=== PATIENT | male | born 1965 | race Caucasian/White ===

== ENCOUNTER 2022-05-03 08:57 | Day surgery (SDC) | payer OTHER ==
--- OUTSIDE RECORDS SUMMARY | 2022-05-03 09:01 | XMS REPORT | Continuity of Care Document ---
:1965 Author Organization [facility] t Address [address] [place] [address] Care Team Providers Name Role Phone Rodrigo Pedraza MD Primary Care Physician David Gipson Attending Clinician Unavailable David Gipson Admitting Clinician Unavailable Rodrigo Pedraza Admitting Clinician Unavailable Payers Payer Name Policy Type Policy Number Effective Date Expiration Date S ource Problems Condition Condition Condition Status Onset Resolution Last Treating Co mments Source Name Details Category Date Date Treatment Clinician Date Colonic Colonic Disease Active Methodi mass mass 08-28 00:00: [facility]osp[facility] 00 l Allergies, Adverse Reactions, Alerts Allergy Allergy Status Severity Reaction(s) Onset Inactive Treating Comm ents Source Name Type Date Date Clinician No Known DA Active U [facility] 07-28 Clear Allergie 00:00: Raphael s 00 [facility] POLLEN DA Active IA SNEEZE, [facility] WATERY EYES, 07-28 Keiry r COUGH 00:00: Raphael 00 [facility] No Known DA Active U [facility] 07-28 Clear Allergie 00:00: Raphael s 00 [facility] Family History Family Member Diagnosis Comments Start Date Stop Date Source Natural father Diabetes [facility] Maternal uncle Cancer [facility] Maternal uncle Colon cancer [facility] Natural mother No Known Problems Met [facility] Social History Social Habit Start Date Stop Date Quantity Comments Source History of Chews Tobacco [facility] use [facility] Alcohol intake 2017-09-14 2017-09-14 1.29 /d [facility] 00:00:00 00:00:00 Hospital Tobacco Comment 2017-08-28 2017-08-28 dipped tobacco [facility] dist 00:00:00 00:00:00 this morning Hospital @0500am Tobacco use and 2017-08-28 2017-08-28 User of smokeless [facility] exposure 00:00:00 00:00:00 tobacco Hospital Alcohol Comment 2017-08-02 2017-08-02 week [facility] 00:00:00 00:00:00 Hospital Sex Assigned At [birth year] [facility] 00:00:00 00:00:00 Hospital Smoking Status Start Date Stop Date Source Never smoked tobacco [facility] Medications Ordered Filled Start Stop Current Ordering Indication Dosage Frequency Signature Comments Components Source Medication Medication Date Date Medication? Clinician (SIG) Name Name montelukast Yes 10mg QD Take 10 mg Methodi (SINGULAIR) 2-[address] 10 mg 19:21: nightly. Hospita tablet 15 l loratadine Yes 10mg Q24H Take 10 mg M ethodi (CLARITIN) 2-[address] 10 mg 19:21: daily as Hospita tablet 15 needed for l allergies. Procedures Procedure Date / Time Performed Performing Clinician [facility] hoda [id number] 2021-01-04 00:00:00 MATVA.01 [facility] [id number] 2021-01-04 00:00:00 MATVA.01 [facility] [id number] 2020-08-03 [facility] [place] [address] Plan of Care Planned Activity Planned Date Details Comments Source Future Scheduled 2022-03-10 HEPATITIS B VACCINES Met [facility] Test 01:17:58 (1 of 3 - 3-dose series) [code = HEPATITIS B VACCINES (1 of 3 - 3-dose series)] Future Scheduled 2022-03-10 COVID-19 VACCINE (#1) [facility] Test 01:17:58 [code = COVID-19 VACCINE (#1)] Future Scheduled 2022-03-10 SHINGLES VACCINES (1 Met [facility] Test 01:17:58 of 2) [code = SHINGLES VACCINES (1 of 2)] Future Scheduled 2022-03-10 COLONOSCOPY SCREENING [facility] Test 01:17:58 [code = COLONOSCOPY SCREENING] Future Scheduled 2022-03-10 INFLUENZA VACCINE [facility] Test 01:17:58 [code = INFLUENZA VACCINE] Encounters Start End Encounter Admission Attending Care Care Encounter Source Date/Time Date/Time Type Type Clinicians Facility Department ID 2020-08-03 Inpatient GEOVANNY Gates SURG [id number] [facility] 09:30:00 David [facility] 2021-01-04 2021-01-04 Inpatient GEOVANNY Gates ADMI [id number] [facility] 05:33:00 19:12:00 David 84 [facility] 2020-12-28 2020-12-28 Outpatient STONEY Gipson LABO [id number] [facility] 18:50:00 18:50:00 David 55 [facility] 2020-07-28 2020-07-28 Outpatient PB Gipson LABO [id number] [facility] 18:12:00 18:12:00 David 23 [facility] 2020-07-28 2020-07-28 Outpatient PB Gipson SIST [id number] [facility] 13:55:00 13:55:00 David 09 [facility] Results Test Description Test Time Test Comments Results Result [facility] e Comments - XR PELVIS 07/112021-01-04 VIEWS 18:31:00 [facility] 1965 Sex: M Patient Name: DENISA PEDRAZA Unit No: [id number] EXAMS: CPT CODE: [id number] XR PELVIS 1/2 VIEWS 64096 AP VIEW OF THE PELVIS. COMMENT: In progress total left hip arthroplasty. AP view of the pelvis COMMENT: COMPARISON: No prior exams available. Completed total left hip arthroplasty. Prosthesis appears to be in good position. at 1831 Reported and signed by: Hi Dos Santos M.D. CC: David Gipson MD; Rodrigo Pedraza MD Technologist: TYRON IVERSON(R) Transcribed D/ (1831) DarlineSLJ [facility] NAME: DENISA PEDRAZA [address] [place] [address] PHYS: EMETERIO Longo BrandanDavid Julio César : 1965 AGE: 55 SEX: M [place] [address] LOC: Y.O23 A PHONE #: [phone] EXAM DATE: 01/04/2021 STATUS: DIS IN FAX #: [phone] RAD #: D/C DT 01/04/2021 PAGE 1 Signed Report Patient Name: DENISA PEDRAZA Unit No: [id number] EXAMS: CPT CODE: [id number] XR PELVIS 1/2 VIEWS 70400 (Continued) Orig Print D/T: S: 01/05/2021 (09) [facility] NAME: DENISA PEDRAZA [address] [place] [address] PHYS: EMETERIO Longo BrandanDavid Julio César : 1965 AGE: 55 SEX: M [place] [address] LOC: Y.O23 A PHONE #: [phone] EXAM DATE: 01/04/2021 STATUS: DIS IN FAX #: [phone] RAD #: D/C DT 01/04/2021 PAGE 2 Signed Report - XR PELVIS 1/2 2021-01-04 VIEWS 18:31:00 [facility] 1965 Sex: M Patient Name: DENISA PEDRAZA Unit No: [id number] EXAMS: CPT CODE: [id number] XR PELVIS 1/2 VIEWS 10248 AP VIEW OF THE PELVIS. COMMENT: In progress total left hip arthroplasty. AP view of the pelvis COMMENT: COMPARISON: No prior exams available. Completed total left hip arthroplasty. Prosthesis appears to be in good position. at 1831 Reported and signed by: Hi Dos Santos M.D. CC: David Gipson MD; Rodrigo Pedraza MD Technologist: ANDREW CUEVAS (RT.R) Transcribed D/ (1830) DarlineSLBrittanie [facility] NAME: DENISA PEDRAZA [address] PHYS: MATVA.Micki - David Gipson Julio César : 1965 AGE: 55 SEX: M [place], [place] [address] LOC: Y.O23 A PHONE #: [phone] EXAM DATE: 01/04/2021 STATUS: DIS IN FAX #: [phone] RAD #: D/C DT 01/04/2021 PAGE 1 Signed Report Patient Name: DENISA PEDRAZA Unit No: [id number] EXAMS: CPT CODE: [id number] XR PELVIS 1/2 VIEWS 70812 (Continued) Orig Print D/T: S: 01/05/2021 (919) [facility] NAME: DENISA PEDRAZA [address] PHYS: MATKARO.Micki - BrandanDavid Julio César : 1965 AGE: 55 SEX: M [place], [place] [address] LOC: Y.O23 A PHONE #: [phone] EXAM DATE: 01/04/2021 STATUS: DIS IN FAX #: [phone] RAD #: D/C DT 01/04/2021 PAGE 2 Signed Report COMPREHENSIVE METABOLIC PANEL 2020-12-28 13:52:00 Test Item Value Reference Range Interpretation Comme nts SODIUM (test code = NA) 139 mmol/L 136-145 N POTASSIUM (test code = K) 4.5 mmol/L 3.5-5.1 N CHLORIDE (test code = CL) 102.0 mmol/L 98-107 N CARBON DIOXIDE (test code = CO2) 24.6 mmol/L 21-32 N GLUCOSE (test code = GLU) 113 mg/dL 70-110 H BLOOD UREA NITROGEN (test code = 14 mg/dL 7-18 N BUN) GLOMERULAR FILTRATION RATE (test 78.2 >60 Unit of measure: mL/min/1.73 code = GFR) [id number] Ran ge:Healthy Adults >90 mL/m in/1.73 m2 For Chronic Kid pauline Disease: Stage II Mild D ecrease in GFR 60-90 Stage III Moderate Decrease in GFR 30-59 Stage IV Severe Decre ase in GFR 15-29 Stage V K idney Failure <15 CREATININE (test code = CREAT) 1.00 mg/dL 0.55-1.30 N TOTAL PROTEIN (test code = PROT) 7.5 g/dL 6.4-8.2 N ALBUMIN (test code = ALB) 3.8 g/dL 3.4-5.0 N GLOBULIN (test code = GLOB) 3.7 g/dL 2.2-4.2 N ALBUMIN/GLOBULIN RATIO (test 1.0 0.7-2.0 N code = A/G) CALCIUM (test code = CA) 9.0 mg/dL 8.2-10.1 N BILIRUBIN TOTAL (test code = 0.60 mg/dL 0.2-1.00 N BILT) SGOT/AST (test code = AST) 42.0 U/L 15-37 H SGPT/ALT (test code = ALT) 89.0 U/L 12-78 H P lease note new normal range. ALKALINE PHOSPHATASE TOTAL (test 78 U/L 46-116 N code = ALKP) PROTHROMBIN [id number] 13:52:00 Test Item Value Reference Range Interpretation Comments PROTHROMBIN TIME 11.1 secs 10.1-12.5 N PATIENT (test code = PTP) INTERNATIONAL NORMAL 0.97 <2.0 RECOMME NDED THERAPEUTIC RATIO (test code = RANGE FOR ORAL INR) ANTICOAGULANTTR EATMENT: CONDITION INRPr ophylaxis of venous throm bosis in 2.0 - 3.0 high- risk medical or surg ical patientsTreatme nt of venous thrombos is 2.0 - 3.0Prevention o f embolism 2.0 - 3.0Prevention o f recurrent embol ism, or 3.0 - 4.5 patie nts with mechanical pros thetic intravascular v armendariz IS PATIENT ON ANTICOAGULANTS ? NHas Lab been notified if Patient is on Heparin Drip? NOIf Yes, orderCBC, OCCULT BLOOD, PT every other day NTHROMBOPLASTIN TIME [id number] 13:52:00 Test Item Value Reference Range Interpretation Comments PTT ACTIVATED (test code = APTT) 34.3 secs 24.9-37.0 N IS PATIENT ON ANTICOAGULANTS ? NHas Lab been notified if Patient is on Heparin Drip? NOIf Yes, orderCBC, OCCULT BLOOD, PT every other day NCBC W/AUTO DIFF 2020-12-28 10:49:00 Test Item Value Reference Range Interpretation Comments WHITE BLOOD CELL (test code = WBC) 9.8 K/mm3 5.7-10.5 N RED BLOOD CELL (test code = RBC) 5.34 M/mm3 4.2-5.4 N HEMOGLOBIN (test code = HGB) 15.6 g/dL 12-16 N HEMATOCRIT (test code = HCT) 46.9 % 37-47 N MEAN CELL VOLUME (test code = MCV) 88 fL 80-98 N MEAN CELL HGB (test code = MCH) 29.2 pg 27-34 N MEAN CELL HGB CONCENTRATION (test 33.3 g/dL 30.8-34.1 N code = MCHC) RED CELL DISTRIBUTION WIDTH (test 14.3 % 11-16 N code = RDW) PLT (test code = PLT) 390 K/mm3 130-400 N MEAN PLATELET VOLUME (test code = 9.1 fL 8.9-12.1 N MPV) NEUTROPHIL % (test code = NT%) 44.6 % 45-70 L LYMPHOCYTE % (test code = LY%) 42.0 % 20-40 H MONOCYTE % (test code = MO%) 9.1 % 3-10 N EOSINOPHIL % (test code = EO%) 3.3 % 1-5 N BASOPHIL % (test code = BA%) 0.7 % 0.0-1.1 N NEUTROPHIL # (test code = NT#) 4.35 K/mm3 2.00-7.50 N LYMPHOCYTE # (test code = LY#) 4.10 K/mm3 1.50-4.00 H MONOCYTE # (test code = MO#) 0.89 K/mm3 0.2-0.8 H EOSINOPHIL # (test code = EO#) 0.32 K/mm3 0.04-0.4 N BASOPHIL # (test code = BA#) 0.07 K/mm3 0.02-0.10 N MANUAL DIFF REQUIRED (test code = NO MANUAL DIFF MDIFF) NUCLEATED RED BLOOD CELL (test 0 % 0-0 N code = NRBC) - XR PELVIS 1/2 [id number] 14:42:00 [facility] 1965 Sex: M PatientName: DENISA PEDRAZA Unit No: [id number] EXAMS: CPT CODE: [id number] XR PELVIS 1/2 VIEWS 57957 AP VIEW OF THE PELVIS. COMMENT: In progress total right hip arthroplasty. AP view of the pelvis COMMENT: COMPARISON: No prior exams available. Completed total right hip arthroplasty. Prosthesis appears to be in good position. at 1442 Reported and signed by: Hi Dos Santos M.D. CC: David Gipson MD; Rodrigo Pedraza MD Technologist:ANDREW CUEVAS (RT.R) Transcribed D/ (1441) DarlineSLJ [facility] NAME: DENISA PEDRAZA [address] [place] [address] PHYS: MATKALYN - David Gipson : 1965 AGE: 55 SEX: M [place], [place] [address] LOC: Y.523 A PHONE #: [phone] EXAM DATE: 08/03/2020 STATUS: DIS IN FAX #: [phone] RAD #: D/C DT 08/03/2020 PAGE 1 Signed Report Patient Name: DENISA PEDRAZA Unit No: [id number] EXAMS: CPT CODE: [id number] XR PELVIS 1/2 VIEWS 45894 (Continued) Orig Print D/T: S: 08/04/2020 (9571) [facility] NAME: DENISA PEDRAZA [address] [place] [address] PHYS: SAHIL.Micki - David Gipson : 1965 AGE: 55 SEX: M [place], [place] [address] LOC: Y.523 A PHONE #: [phone] EXAM DATE: 08/03/2020 STATUS: DIS IN FAX #: [phone] RAD #: D/C DT 08/03/2020 PAGE 2 Signed Report- XR PELVIS 1/2 [id number] 14:42:00[facility] : 1965 Sex: M Patient Name: DENISA PDERAZA Unit No: [id number] EXAMS: CPT CODE: [id number] XR PELVIS 1/2 VIEWS 54204 AP VIEW OF THE PELVIS. COMMENT: In progress total right hip arthroplasty. AP view of the pelvis COMMENT: COMPARISON: No prior exams available. Completed total right hip arthroplasty. Prosthesis appears to be in good position. at 1442 Reported and signed by: Hi Dos Santos M.D. CC: David Gipson MD; Rodriog Pedraza MD Technologist: ANDREW CUEVAS (RT.R) Transcribed D/ (1442) [facility] NAME: DENISA PEDRAZA [address] [place] [address] PHYS: MATDavid Kraus : 1965 AGE: 55 SEX: M [place] [address] LOC: Y.523 A PHONE #: [phone] EXAM DATE: 08/03/2020 STATUS: DIS IN FAX #: [phone] RAD #: D/C DT 08/03/2020 PAGE 1 Signed Report Patient Name: DENISA PEDRAZA Unit No: [id number] EXAMS: CPT CODE: [id number] XR PELVIS 1/2 VIEWS 96828 (Continued) Orig Print D/T: S: 08/04/2020 (1445) [facility] NAME: DENISA PEDRAZA [address] [place] [address] PHYS: David Gross : 1965 AGE: 55 SEX: M [place] [address] : Y.523 A PHONE #: [phone] EXAM DATE: 08/03/2020 STATUS: DIS IN FAX #: [phone] RAD #: D/C DT 08/03/2020 PAGE 2 Signed ReportNovel Coronavirus 2019 Inhouse 2020-07-29 09:23:00 Test Item Value Reference Range Interpretation Comments Novel Coronavirus Negative Negative Positive r esults are 2019 Inhouse (test indicativ e of the presence code = COVNONPUI) ofSARS-CoV -2 RNA, clinical correlation wit h patient historyand othe r diagnostic info rmation is necessary to determinepatien t infection status. Positiv e results do not rule out bacterial infection or co -infection with other viru ses. Negative result s do not preclude SARS-C oV-2 infection andsh ould not be used as the delores e basis for patient managementdecis ions. Negative result s must be combined with otherclinical observations, p atient history, and epidemiological information . Detection of SARS-CoV-2 RNA may be affe cted bysample collec tion methods, storag e conditions, and /or stageof infection. Meghan l RNA mutations, vacc inations, antiviraltherap eutics, antibiotics, chemotherapeuti c orimmunosuppres teri drugs have not been e valuated for effectson d etection. Results are for the identification of SARS-CoV-2 RNA usingthe [employer] M2000 Sy stem under the [facility] Emergen cy UseAuthorizatio n. The testing is perf ormed by josep champagne in the procedures for the [employer] M2000 molecular diagnostic SARS-CoV-2 assa y in vitro. Novel Coronavirus 2019 [id number] 09:22:00 Test Item Value Reference Range Interpretation Comments Novel Coronavirus Negative Negative Positive r esults are 2019 Inhouse (test indicativ e of the presence code = COVNONPUI) ofSARS-CoV -2 RNA, clinical correlation wit h patient historyand othe r diagnostic info rmation is necessary to determinepatien t infection status. Positiv e results do not rule out bacterial infection or co -infection with other viru ses. Negative result s do not preclude SARS-C oV-2 infection andsh ould not be used as the delores e basis for patient managementdecis ions. Negative result s must be combined with otherclinical observations, p atient history, and epidemiological information . Detection of SARS-CoV-2 RNA may be affe cted bysample collec tion methods, storag e conditions, and /or stageof infection. Meghan l RNA mutations, vacc inations, antiviraltherap eutics, antibiotics, chemotherapeuti c orimmunosuppres teri drugs have not been e valuated for effectson d etection. Results are for the identification of SARS-CoV-2 RNA usingthe [employer] M2000 Sy stem under the FDA Emergen cy UseAuthorizatio n. The testing is perf ormed by josep champagne in the procedures for the [employer] M2000 molecular diagnostic SARS-CoV-2 assa y in vitro. AB HIV 1 15:39:00 Test Item Value Reference Range Interpretation Comments AB HIV 1 2 (test NONREACTIVE NONREACTIVE Done by Sie Digidentityaur code = MCA40EC) 4th Gen HIV Ag/Ab Combo Screen AB HIV 15:39:00 Test Item Value Reference Range Interpretation Comments AB HIV 1 (test code NONREACTIVE NONREACTIVE Done by Social Geniusaur = HIV1AB) 4th Gen HIV Ag/ Ab Combo Screen PROTHROMBIN [id number] 12:17:00 Test Item Value Reference Range Interpretation Comments PROTHROMBIN TIME 11.2 secs 10.1-12.5 N PATIENT (test code = PTP) INTERNATIONAL NORMAL 0.98 <2.0 RECOMME NDED THERAPEUTIC RATIO (test code = RANGE FOR ORAL INR) ANTICOAGULANTTR EATMENT: CONDITION INRPr ophylaxis of venous throm bosis in 2.0 - 3.0 high- risk medical or surg ical patientsTreatme nt of venous thrombos is 2.0 - 3.0Prevention o f embolism 2.0 - 3.0Prevention o f recurrent embol ism, or 3.0 - 4.5 patie nts with mechanical pros thetic intravascular v armendariz IS PATIENT ON ANTICOAGULANTS ? NCas Lab been notified if Patient is on Heparin Drip? NOIf Yes, orderCBC, OCCULT BLOOD, PT every other day NTHROMBOPLASTIN TIME [id number] 12:17:00 Test Item Value Reference Range Interpretation Comments PTT ACTIVATED (test code = APTT) 34.2 secs 24.9-37.0 N IS PATIENT ON ANTICOAGULANTS ? NHas Lab been notified if Patient is on Heparin Drip? NOIf Yes, orderCBC, OCCULT BLOOD, PT every other day NCOMPREHENSIVE METABOLIC [id number] 12:16:00 Test Item Value Reference Range Interpretation Comments SODIUM (test code = 136 mmol/L 136-145 N NA) POTASSIUM (test code = 4.7 mmol/L 3.5-5.1 N K) CHLORIDE (test code = 100.0 mmol/L 98-107 N CL) CARBON DIOXIDE (test 23.6 mmol/L 21-32 N code = CO2) GLUCOSE (test code = 108 mg/dL 70-110 N GLU) BLOOD UREA NITROGEN 18 mg/dL 7-18 N (test code = BUN) GLOMERULAR FILTRATION 70.0 >60 Unit o f measure: RATE (test code = GFR) mL/mi n/1.73 [id number] Range:Healthy Adults >90 mL/min/1.73 m2 For Chronic Kidney Disease: Stage II Mild Decrease i n GFR 60-90 Stage III Moderate Decrea se in GFR 30-59 St age IV Severe Decre ase in GFR 15-29 St age V Kidney Failur e <15 CREATININE (test code 1.10 mg/dL 0.55-1.30 N = CREAT) TOTAL PROTEIN (test 7.9 g/dL 6.4-8.2 N code = PROT) ALBUMIN (test code = 3.9 g/dL 3.4-5.0 N ALB) GLOBULIN (test code = 4.0 g/dL 2.2-4.2 N GLOB) ALBUMIN/GLOBULIN RATIO 1.0 0.7-2.0 N (test code = A/G) CALCIUM (test code = 9.2 mg/dL 8.2-10.1 N CA) BILIRUBIN TOTAL (test 0.90 mg/dL 0.2-1.00 N code = BILT) SGOT/AST (test code = 43.0 U/L 15-37 H AST) SGPT/ALT (test code = 83.0 U/L 12-78 H Please note new ALT) normal range. ALKALINE PHOSPHATASE 70 U/L 46-116 N TOTAL (test code = ALKP) CBC W/AUTO [id number] 11:46:00 Test Item Value Reference Range Interpretation Comments WHITE BLOOD CELL (test code = WBC) 8.9 K/mm3 5.7-10.5 N RED BLOOD CELL (test code = RBC) 5.26 M/mm3 4.2-5.4 N HEMOGLOBIN (test code = HGB) 16.2 g/dL 12-16 H HEMATOCRIT (test code = HCT) 47.2 % 37-47 H MEAN CELL VOLUME (test code = MCV) 90 fL 80-98 N MEAN CELL HGB (test code = MCH) 30.8 pg 27-34 N MEAN CELL HGB CONCENTRATION (test 34.3 g/dL 30.8-34.1 H code = MCHC) RED CELL DISTRIBUTION WIDTH (test 13.1 % 11-16 N code = RDW) PLT (test code = PLT) 392 K/mm3 130-400 N MEAN PLATELET VOLUME (test code = 9.7 fL 8.9-12.1 N MPV) NEUTROPHIL % (test code = NT%) 45.5 % 45-70 N LYMPHOCYTE % (test code = LY%) 44.9 % 20-40 H MONOCYTE % (test code = MO%) 7.6 % 3-10 N EOSINOPHIL % (test code = EO%) 1.0 % 1-5 N BASOPHIL % (test code = BA%) 0.8 % 0.0-1.1 N NEUTROPHIL # (test code = NT#) 4.05 K/mm3 2.00-7.50 N LYMPHOCYTE # (test code = LY#) 4.00 K/mm3 1.50-4.00 N MONOCYTE # (test code = MO#) 0.68 K/mm3 0.2-0.8 N EOSINOPHIL # (test code = EO#) 0.09 K/mm3 0.04-0.4 N BASOPHIL # (test code = BA#) 0.07 K/mm3 0.02-0.10 N MANUAL DIFF REQUIRED (test code = NO MANUAL DIFF MDIFF) NUCLEATED RED BLOOD CELL (test 0 % 0-0 N code = NRBC)
[2022-05-03] MEDS ORDERED: ONDANSETRON 4 MG (ODT) TAB ONE (09:21)
[2022-05-03] MEDS ORDERED: HYDROCODONE/APAP 10/325 TAB ONE (09:22)
--- NOTE | 2022-05-03 09:52 | RAD REPORT ---
EXAM DESCRIPTION: CT - Stone Protocol - 05/03/2022 9:20 am CLINICAL HISTORY: flank pain COMPARISON: Abdomen Pelvis W Contrast dated 07/21/2017 TECHNIQUE: Axial 3 mm thick images were obtained without oral or IV contrast. The [id number] span s the entirety of the system including uppermost abdomen and lung bases. O-MAR reconstruction was performed. Sagittal and coronal reformatted images were generated and reviewed. All CT scans are performed using dose optimization technique as appropriate and may include automated exposure control or mA/KV adjustment according to patient size. FINDINGS: Normally positioned right kidney shows no hydronephrosis. No obstructing calculus seen. Th ere is no renal parenchymal edema or perinephric abnormality. Patient probably has punctate 1 mm size d calyx calculi. No right-sided hydroureter. Left kidney is in the mid pelvis. There is artifact on t he examination limiting detail. The kidney appears edematous and there is a mild amount of perinephri c stranding. Moderately severe dilatation of the left renal pelvis is present along with left hydrour eter. There is a 9 x 5 mm obstructing calculus in the distal left ureter. No suspicious renal masses. Isodense masses and pyelonephritis are not excluded on a stone protocol CT scan. No significant adre nal finding. Assessment of the urinary bladder is limited due to the spray artifact from the bilatera l hip prostheses. A bladder calculus or significant bladder process is not suspected. Imaged portions of the liver, spleen and pancreas show no suspicious findings on non-contrast imaging . No gallbladder or biliary tree abnormality identified. No suspicious bowel findings. No hernia, mass or bulky lymphadenopathy noted. No free air, free fluid or inflammatory stranding. No significant bony abnormality. IMPRESSION: Moderately severe hydronephrosis of the left collecting system due to a 9 x 5 mm stone i n the distal left ureter. Edematous left kidney is positioned in the mid pelvis as a normal anatomic variant. This has been pre viously noted. Isodense masses and pyelonephritis are not excluded on stone protocol technique.
[2022-05-03 10:15] LABS: Absolute Lymphocytes (CBC) 2.2 K/uL (0.7-4.9); Hematocrit 46.8 % (39.6-49.0); Lymphocytes % 20.2 % (15.3-44.8); MCV 89.9 fL (80-100); RBC Red Blood Cell Count 5.21 M/uL (4.33-5.43)
[2022-05-03 10:33] LABS: Potassium 4.6 mmol/L (3.5-5.1)
[2022-05-03 10:38] LABS: Urine Blood 3+ (Negative); Urine Glucose 2+ (Negative); Urine Protein Negative (Negative)
[2022-05-03] MEDS ORDERED: MAGNESIUM SULFATE 1 gm IVPB 1 GM/100 ML BAG IV ONE (10:53)
[2022-05-03] MEDS ORDERED: TAMSULOSIN 0.4 MG SR CAP ONE (10:53)
[2022-05-03 11:38] LABS: Urine Mucus Slight /HPF (None Seen); Urine RBC >50 /HPF (None Seen)
[2022-05-03] MEDS ORDERED: cloNIDine HCL 0.1 MG TAB ONE (14:01)
--- NOTE | 2022-05-03 14:34 | EDPHYS ---
Physician Documentation [facility] Name: Noe Spears Age: 57 yrs Sex: Male : 1965 Arrival Date: 05/03/2022 Time: 08:59 Bed 12 Private MD: Rodrigo Pedraza B ED Physician Raissa Luke HPI: 05/03 14:32 This 57 yrs old Male presents to ER via Ambulatory with complaints of Possible Kidney kb Stone, Back Pain, Nausea. 14:32 The patient complains of pain in the left flank. The pain radiates. Onset: The kb symptoms/episode began/occurred last night. Modifying factors: The symptoms are alleviated by nothing. the symptoms are aggravated by nothing. Associated signs and symptoms: The patient has no apparent associated signs or symptoms. Severity of pain: At its worst the pain was moderate in the emergency department the pain is unchanged. The patient has not experienced similar symptoms in the past. The patient has not recently seen a physician. Historical: - Allergies: 09:07 No Known Allergies; ll1 - PMHx: 09:07 None; ll1 - PSHx: 09:07 hip replacements; ll1 - Immunization history:: Client reports receiving the Fabrizio \T\ Fabrizio single-dose vaccine. - Social history:: Smoking status: Patient reports use of chewing tobacco. Patient denies any tobacco usage or history of. ROS: 14:24 Constitutional: Negative for fever, chills, and weight loss. kb 14:24 Back: Positive for flank pain, on the left, radiated pain. 14:24 All other systems are negative. Exam: 14:26 Constitutional: This is a well developed, well nourished patient who is awake, alert, kb and in no acute distress. Head/Face: Normocephalic, atraumatic. ENT: Moist Mucous membranes Cardiovascular: Regular rate and rhythm with a normal S1 and S2. No gallops, murmurs, or rubs. No pulse deficits. Respiratory: Respirations even and unlabored. No increased work of breathing. Talking in full sentences Abdomen/GI: Soft, non-tender. No distention Skin: Warm, dry with normal turgor. Normal color. MS/ Extremity: Pulses equal, no cyanosis. Neurovascular intact. Full, normal range of motion. Neuro: Awake and alert, GCS 15, oriented to person, place, time, and situation. Moves all extremities. Normal gait. Psych: Awake, alert, with orientation to person, place and time. Behavior, mood, and affect are within normal limits. 14:26 Back: CVA tenderness, that is mild, is noted on the left. 14:49 ECG was reviewed by the Attending Physician. kb Vital Signs: 09:05 BP 193 / 100; Pulse 75; Resp 17; Temp 97.6; Pulse Ox 96% ; Weight 136.08 kg; Height 5 ll1 ft. 11 in. (180.34 cm); Pain 7/10; 11:32 BP 213 / 117; Pulse 70; Resp 18; Pulse Ox 100% on R/A; kr3 12:35 BP 216 / 104; Pulse 73; Resp 18; Pulse Ox 98% on R/A; kr3 13:59 BP 207 / 103; Pulse 43; Resp 18; Pulse Ox 99% on R/A; kr3 09:05 Body Mass Index 41.84 (136.08 kg, 180.34 cm) ll1 MDM: 09:00 Patient medically screened. kb 12:06 Data reviewed: vital signs, nurses notes. Data interpreted: Pulse oximetry: on room air kb is 100 %. Interpretation: normal. Physician consultation: Carlos West MD was called at 12:06, regarding consult, patient's condition, voicemail left. 14:23 Physician consultation: Carlos West MD in the emergency department to see patient at kb 14:23. 14:31 Counseling: I had a detailed discussion with the patient and/or guardian regarding: the kb historical points, exam findings, and any diagnostic results supporting the discharge/admit diagnosis, lab results, radiology results, the need for further work-up and treatment in the hospital. ED course: Dr West will take pt to OR now. 05/03 09:02 Order name: Urine Microscopic Only; Complete Time: 11:58 kb 05/03 09:54 Order name: CBC with Diff; Complete Time: 10:35 kb 05/03 09:07 Order name: CT Stone Protocol; Complete Time: 09:53 kb 05/03 09:54 Order name: Basic Metabolic Panel; Complete Time: 10:35 kb 05/03 10:38 Order name: Urine Dipstick-Ancillary; Complete Time: 10:49 EDMS 05/03 14:33 Order name: SARS-COV-2 Antigen Rapid bd 05/03 09:02 Order name: Urine Dipstick-Ancillary (obtain specimen); Complete Time: 10:04 kb 05/03 09:54 Order name: IV Start; Complete Time: 10:04 kb 05/03 14:27 Order name: EKG; Complete Time: 14:27 kb 05/03 13:23 Order name: Vital Signs; Complete Time: 14:00 kb 05/03 14:27 Order name: EKG - Nurse/Tech; Complete Time: 15:05 kb EC:49 Rate is 67 beats/min. Rhythm is regular. QRS [place] is Normal. MD interval is normal at kb 166 msec. QRS interval is normal at 92 msec. QT interval is normal at 431 msec. Administered Medications: 09: Drug: [place] (HYDROcodone-acetaminophen) 10 mg-325 mg 1 tabs Route: PO; kr3 11:07 Follow up: Response: No adverse reaction; RASS: Alert and Calm (0) kr3 09:33 Drug: Ondansetron 4 mg Route: PO; kr3 11:07 Follow up: Response: No adverse reaction kr3 11:07 Drug: Magnesium Sulfate 1 grams Route: IVPB; Infused Over: 1 hrs; Site: left kr3 antecubital; 14:03 Follow up: Response: No adverse reaction; IV Status: Completed infusion; IV Intake: kr3 250ml 11:07 Drug: Flomax (tamsulosin) 0.4 mg Route: PO; kr3 14:05 Follow up: Response: No adverse reaction kr3 14:02 Drug: cloNIDine 0.1 mg Route: PO; kr3 15:08 Follow up: Response: No adverse reaction kr3 Disposition Summary: 05/03/22 14:33 Hospitalization Ordered Hospitalization Status: Observation kb Provider: Carlos West Location: Operating Room kb Condition: Stable kb Problem: new kb Symptoms: are unchanged kb Bed/Room Type: Standard Room Assignment: Diagnosis - Calculus of ureter kb Discharge Instructions: - Discharge Summary Sheet bd Forms: - Medication Reconciliation Form kb - SBAR form bd Signatures: Dispatcher [employer] Shanthi Rosario FNP-C FNP-Ras Casillas RN RN ll1 Tiny Arcos RN RN kr3
--- NOTE | 2022-05-03 14:34 | ER ---
Nurse's Notes [facility] Name: Noe Spears Age: 57 yrs Sex: Male : 1965 Arrival Date: 05/03/2022 Time: 08:59 Bed 12 Private MD: Rodrigo Pedraza B Diagnosis: Calculus of ureter Presentation: 05/03 09:05 Chief complaint: Patient states: L back/flank pain started last night, some nausea. ll1 Coronavirus screen: Vaccine status: Patient reports receiving the 1st dose of the Covid vaccine. Client denies travel out of the [place] in the last 14 days. At this time, the client does not indicate any symptoms associated with coronavirus-19. Ebola Screen: Patient denies travel to an Ebola-affected area in the 21 days before illness onset. Initial Sepsis Screen: Does the patient meet any 2 criteria? No. Patient's initial sepsis screen is negative. Does the patient have a suspected source of infection? Yes: Acute abdominal pain. Risk Assessment: Do you want to hurt yourself or someone else? Patient reports no desire to harm self or others. Onset of symptoms was May 02, 2022. 09:05 Method Of Arrival: Ambulatory ll1 09:05 Acuity: ANNY 3 ll1 Triage Assessment: 09:07 General: Appears uncomfortable, Behavior is cooperative, appropriate for age. Pain: ll1 Complains of pain in L flank Pain currently is 7 out of 10 on a pain scale. Quality of pain is described as aching. GI: Reports lower abdominal pain, nausea. : Reports urgency. Historical: - Allergies: 09:07 No Known Allergies; ll1 - PMHx: 09:07 None; ll1 - PSHx: 09:07 hip replacements; ll1 - Immunization history:: Client reports receiving the Fabrizio \T\ Fabrizio single-dose vaccine. - Social history:: Smoking status: Patient reports use of chewing tobacco. Patient denies any tobacco usage or history of. Screenin:06 Abuse screen: Denies threats or abuse. Nutritional screening: No deficits noted. kr3 Tuberculosis screening: No symptoms or risk factors identified. Fall Risk IV access (20 points). Total Alejandro Fall Scale indicates No Risk (0-24 pts). Assessment: 11:30 General: Appears in no apparent distress. uncomfortable, Behavior is calm, cooperative, kr3 appropriate for age. 12:30 Respiratory:. :. kr3 12:31 Reassessment: No changes from previously documented assessment. Patient and/or family kr3 updated on plan of care and expected duration. Pain level reassessed. Patient is alert, oriented x 3, equal unlabored respirations, skin warm/dry/pink. 15:07 GI: Bowel sounds present X 4 quads. Abd is soft and non tender. kr3 Vital Signs: 09:05 BP 193 / 100; Pulse 75; Resp 17; Temp 97.6; Pulse Ox 96% ; Weight 136.08 kg; Height 5 ll1 ft. 11 in. (180.34 cm); Pain 7/10; 11:32 BP 213 / 117; Pulse 70; Resp 18; Pulse Ox 100% on R/A; kr3 12:35 BP 216 / 104; Pulse 73; Resp 18; Pulse Ox 98% on R/A; kr3 13:59 BP 207 / 103; Pulse 43; Resp 18; Pulse Ox 99% on R/A; kr3 09:05 Body Mass Index 41.84 (136.08 kg, 180.34 cm) ll1 ED Course: 08:59 Patient arrived in ED. mr 08:59 Rodrigo Pedraza MD is Private Physician. mr 08:59 Shanthi Guerrero FNP-C is [facility]. kb 08:59 Raissa Luke MD is Attending Physician. kb 09:05 Arm band placed on Patient placed in an exam room, on a stretcher. ll1 09:07 Triage completed. ll1 09:15 Bed in low position. Call light in reach. Side rails up X 1. kr3 09:19 Tiny Arcos, RN is Primary Nurse. kr3 09:21 CT Stone Protocol In Process Unspecified. EDMS 10:04 Inserted saline lock: 22 gauge in left antecubital area, using aseptic technique. Blood kr3 collected. 14:33 Carlos West MD is Hospitalizing Provider. kb 15:05 SARS-COV-2 Antigen Rapid Sent. kr3 15:06 No provider procedures requiring assistance completed. Patient admitted, IV remains in kr3 place. Administered Medications: 09:33 Drug: [place] (HYDROcodone-acetaminophen) 10 mg-325 mg 1 tabs Route: PO; kr3 11:07 Follow up: Response: No adverse reaction; RASS: Alert and Calm (0) kr3 09:33 Drug: Ondansetron 4 mg Route: PO; kr3 11:07 Follow up: Response: No adverse reaction kr3 11:07 Drug: Magnesium Sulfate 1 grams Route: IVPB; Infused Over: 1 hrs; Site: left kr3 antecubital; 14:03 Follow up: Response: No adverse reaction; IV Status: Completed infusion; IV Intake: kr3 250ml 11:07 Drug: Flomax (tamsulosin) 0.4 mg Route: PO; kr3 14:05 Follow up: Response: No adverse reaction kr3 14:02 Drug: cloNIDine 0.1 mg Route: PO; kr3 15:08 Follow up: Response: No adverse reaction kr3 Medication: 15:08 VIS not applicable for this client. kr3 Intake: 14:03 IV: 250ml; Total: 250ml. kr3 Outcome: 14:33 Decision to Hospitalize by Provider. kb 15:07 Admitted to OR accompanied by nurse, via wheelchair. kr3 15:07 Condition: stable 15:07 Instructed on the need for admit. 15:08 Patient left the ED. kr3 Signatures: Dispatcher [employer] EDMS Shanthi Guerrero, FIELD COURT RESEARCHER-C FIELD COURT RESEARCHER-Ckb Corado Dinah mr Ras Brown RN RN ll1 Tiny Arcos RN RN kr3 Corrections: (The following items were deleted from the chart) 12:31 12:30 General: Appears in no apparent distress. uncomfortable, Behavior is calm, kr3 cooperative, appropriate for age, kr3
[2022-05-03] MEDS ORDERED: Ringers Lactate 1,000 ML IV ONE (14:57)
[2022-05-03] MEDS ORDERED: LIDOCAINE 1% MPF 10 ML AMPULE ONE (15:04)
[2022-05-03] MEDS ORDERED: MIDAZOLAM HCL 2 MG/2 ML INJ ONE (15:04)
[2022-05-03] MEDS ORDERED: FENTANYL CITR 100 MCG/2 ML ONE (15:04)
[2022-05-03] MEDS ORDERED: propofoL 200 MG/20 ML VIAL IV ONE (15:04)
[2022-05-03 15:06] LABS: SARS-CoV-2 Antigen Rapid Res Negative (Negative)
[2022-05-03] MEDS ORDERED: CEFAZOLIN SODIUM 1 GM/VIAL ONE (15:24)
[2022-05-03] MEDS ORDERED: NA CHLORIDE 0.9% 1,000 ML IV SCH (15:29)
[2022-05-03] MEDS ORDERED: NS 0.9% VIAL 0 ML ONE (15:31)
[2022-05-03] MEDS ORDERED: KETOROLAC 30 MG/ML INJ ONE (15:32)
--- NOTE | 2022-05-03 15:38 | CON ---
Reason For Consultation: Obstructive ureterolithiasis. History Of Present Illness: Mr. Spears is a 57-year-old gentleman, who denies significant past med ical history and presents with an approximately 14 to 24-hour history of left pelvic pain that radiat ed into his left lower back region. The pain was severe in nature and initially dull, but then becam e a bit sharp. He denied any associated fever, though he did have some occasional chills. He denied any associated vomiting, but he had some nausea. He had never had a kidney stone in the past, thoug h he noted his father had dealt with kidney stones. This was his first stone event. With the pain t hen becoming severe, he presented to the emergency department for evaluation. Past Medical History: Noncontributory. Past Surgical History: Bilateral hip replacements. Family History: No urologic malignancy, though father with history of kidney stones. Social History: He dips chewing tobacco since he was 20 years old and uses 1 can per day. Allergies: NO KNOWN DRUG ALLERGIES. Physical Examination: At this point, he was comfortable and well-appearing, in no acute distress, [facility]. Alert, awake, oriented x3. No dyspnea or sign of respiratory distress. No cerv ical or supraclavicular adenopathy or thyromegaly. He is moderately obese, but his abdomen was soft. He had tenderness within the left lower quadrant. There was no Micaela sign and he was able to mo ve all extremities. Laboratory Analysis: Reviewed with notable findings as follows: White count 11, creatinine 1.11, an d urinalysis negative for infections plus heme. I reviewed the CT scan of the abdomen and pelvis per formed without IV contrast and noted the presence of a normal-appearing right kidney without hydronep hrosis, but a pelvic malrotated left kidney with approximately 8 x 4 mm stone within the midportion o f the very attenuated ureter. There was moderate pelviectasis without significant caliectasis noted. Assessment And Recommendations: This is a 57-year-old gentleman with no significant documented past medical history, first-time stone former with a pelvic malrotated left kidney with 8 x 4 mm ureteroli thiasis causing left lower quadrant and flank pain. I counseled the patient on his options are as fo llows: 1.Observe for stone passage/straining his urine and managing his pain alternating Tylenol with Motri n/ibuprofen. I explained he had somewhere between a 20% and a 60% chance of successful spontaneous p assage, but it could take up to 3 to 4 weeks to do so. He would need to strain his urine in the inte rim and manage the pain accordingly. 2.I explained that given his likely approximately 40% chance of successful spontaneous passage and n eed to manage his pain in the interim, he may benefit from a left ureteral stent placed to relieve th e obstruction and potentially decrease the severity of his pain. I did explain to him, and he was so mewhat familiar having observed his father, the potential pain and discomfort associated with a urete ral stent. The need for subsequent definitive management of the stones was also discussed. 3.After some consideration, he elected to proceed with surgical management of his obstruction via le ft ureteral stent today. 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 Subsequent followup after stent placed will be established in the Urology Clinic, at which point we will arrange definitive surgical management of his stones. TERRANCE/MARIJA Voice ID: [id number] Report ID: [id number]
[2022-05-03] MEDS ORDERED: CEFAZOLIN 2 GM IN 0.9% NACL 2 GM/100 ML BAG IV ONE (16:00)
[2022-05-03] MEDS ORDERED: PHENAZOPYRIDINE 100MG TAB PO ONE ×2 (16:08→16:53)
[2022-05-03] MEDS ORDERED: CODEINE 30MG/APAP 300MG TAB PO PRN (16:08)
[2022-05-03 16:45] VITALS: BP 115/72; TEMP 97.4; O2SAT 97
--- NOTE | 2022-05-03 17:14 | RAD REPORT ---
EXAM DESCRIPTION: RAD - Urethrocystogrphy Retrograde - 05/03/2022 4:23 pm CLINICAL HISTORY: cysto COMPARISON: Stone Protocol dated 05/03/2022 FINDINGS/IMPRESSION: Multiple intraoperative fluoroscopic images (two series) were submitted showing cannulation of the left kidney which is a low lying pelvic kidney. A ureteral stent was placed. Bila teral hip arthroplasties. Cumulative dose: 45.2 mGy.
--- NOTE | 2022-05-04 13:08 | EKG ---
Test Date: 2022-05-03 Test Time: 14:43:00 Clinical Transplant Coordinator: CHASITY MEASUREMENT RESULTS: Intervals: Rate: 67 VT: 166 QRSD: 92 QT: 408 QTc: 431 [place]: P: 55 VT: 166 QRS: -3 T: 90 INTERPRETIVE STATEMENTS: Normal sinus rhythm Normal ECG No previous ECG available for comparison Electronically Signed On 05-04-22 13:06:45 CDT by Hong Lorenz
--- NOTE | 2022-05-05 16:33 | P.OP ---
Date of Service: 05/03/22 Preoperative diagnosis: Left pelvic kidney Malrotated left kidney Left obstructive ureterolithiasis 8 mm Postoperative diagnoses: Same Impacted ureteral calculus Principal procedures: Cystoscopy Left retrograde pyelography Left ureteral stent placement Indication for procedure: Mr. Spears is a 57-year-old gentleman first-time stone former who presented to the emergency department with left lower quadrant and flank pain found to be secondary to an obstructing 8 mm left mid ureteral calculus in the setting of a malrotated and pelvic left kidney with hydronephrosis. I counseled him that he had likely a 40% or less chance of successful spontaneous passage and explained his option to attempt stone passage versus procedural intervention and stent placement. He elected the latter. Findings and Operative Technique He was consented in the preoperative holding area before being transferred to the operative suite where general anesthesia was induced. He was given Ancef 2 g IV antimicrobial prophylaxis and pneumoboots were provided for DVT prophylaxis. He was placed in the lithotomy position, padded and secured to the table appropriately. His genitalia was prepped with Hibiclens and he was draped in standard fashion. The case was begun using a 22 [place]ian rigid cystoscope to traverse the urethra and into the bladder with ease. The bladder was surveyed in its entirety, and there were no papillary mucosal lesions, foreign bodies or stones. The trigone and ureteral orifices were orthotopic in location. The left ureteral orifice was cannulated using the tip of a 5 [place]err[place]ian ureteral access catheter and a retrograde pyelogram was performed. Left retrograde pyelography: Using a 70: 30 mixture of Omnipaque and saline, contrast was injected via the 5 [place]err[place]ian ureteral access catheter and did propagate up the short ureteral segment before encountering a radiolucent calculus obstructing at that location. With further injection of contrast, some of the contrast did go around the stone and into her the dilated renal pelvis and some of the lower pole calyces. As a result, I was able to then navigate the sensor wire up the ureter and beyond the point of obstruction into the putative upper pole of the kidney. I passed the 5 [place]err[place]ian ureteral access catheter with some difficulty over the sensor wire into the proximal ureter beyond the stone in order to inject more contrast and confirm that the wire was indeed within the collecting system. Once confirmed, I then remove the 5 [place]err[place]ian ureteral access catheter and passed a 6 [place]ian by 22 cm double-J ureteral stent with a coil difficult to visualize due to the pelvic location within the renal pelvis and an additional coil cystoscopically verified within the bladder. The case was then concluded and the cystoscope was removed. He was then taken out of the lithotomy position, awakened from general anesthesia, transferred to a stretcher, and then transferred to the recovery room in good condition. Complications: None Discharge disposition: He will follow-up with me in the urology clinic for counseling about definitive surgical management via ureteroscopy with laser lithotripsy and stent exchange.
== END 2022-05-03 17:20 | disposition home or self-care (01) ==
LOC: ER 08:57 → ERHOLD 14:43 → UNDOADMOB 14:43 → DS 15:29
PROVIDERS: ATTEND Urology
PROC: 0T9780Z Drainage of Left Ureter with Drainage Device, Via Natural or Artificial Opening Endoscopic (ICD-10-PCS; principal; 2022-05-03 13:15)
DX: N20.1 Calculus of ureter (principal); Q63.2 Ectopic kidney; Z20.822 Contact with and (suspected) exposure to COVID-19
CPT/HCPCS: 96365; 93005; 85025; 80048; 36415; 76377; 74176; 74450; 51610; 99285; 96366; 87811; 52332; J2704; Q0162; J2250; J3010; J3475; J0690; J7120; 81003; 81015; A4216

== ENCOUNTER 2022-05-24 06:24 | Day surgery (SDC) | payer OTHER ==
[2022-05-24] MEDS ORDERED: FENTANYL CITR 100 MCG/2 ML ONE (06:45)
[2022-05-24] MEDS ORDERED: MIDAZOLAM HCL 2 MG/2 ML INJ ONE (06:45)
[2022-05-24] MEDS ORDERED: propofoL 200 MG/20 ML VIAL IV ONE (06:45)
[2022-05-24] MEDS ORDERED: ONDANSETRON 4 MG/2 ML VIAL ONE (06:45)
[2022-05-24] MEDS ORDERED: LIDOCAINE 1% MPF 5 ML VIAL ONE (06:45)
[2022-05-24] MEDS ORDERED: NA CHLORIDE 0.9% 1,000 ML ONE (06:48)
[2022-05-24] MEDS ORDERED: AMPICILLIN SODIUM 2 GM/VIAL VIAL ONE (06:48)
[2022-05-24] MEDS ORDERED: Gentamicin Inj 240 MG in NA CHLORIDE 0.9% 100 ML IVPB ONE (08:00)
[2022-05-24] MEDS ORDERED: KETOROLAC 30 MG/ML INJ ONE (08:02)
[2022-05-24] MEDS ORDERED: Mastisol Adhesive Liq ONE (08:12)
[2022-05-24] MEDS ORDERED: PHENAZOPYRIDINE 100MG TAB PO ONE ×2 (08:47→09:13)
[2022-05-24] MEDS ORDERED: CODEINE 30MG/APAP 300MG TAB PO PRN (08:47)
[2022-05-24 08:59] VITALS: TEMP 97.2
--- NOTE | 2022-05-24 09:04 | RAD REPORT ---
EXAM DESCRIPTION: RAD - Urethrocystogrphy Retrograde - 05/24/2022 8:29 am CLINICAL HISTORY: CYSTO COMPARISON: Urethrocystogrphy Retrograde dated 05/03/2022 FINDINGS: Total fluoro time: 22 seconds
[2022-05-24] MEDS ORDERED: CODEINE 30MG/APAP 300MG TAB ONE (09:13)
[2022-05-24 09:26] VITALS: BP 117/57; O2SAT 99
--- NOTE | 2022-05-24 18:09 | OP ---
Surgeon: PARAS MCNAIR Preoperative Diagnoses: 1.Left obstructive ureterolithiasis. 2.Malrotated pelvic left kidney. Postoperative Diagnoses: 1.Left obstructive ureterolithiasis. 2.Malrotated pelvic left kidney. Principal Procedure: 1.Cystoscopy. 2.Left retrograde pyelography. 3.Left ureteroscopy with laser lithotripsy using the Thulium laser. 4.Left ureteral stent exchange with tethered stent. Indication For Procedure: Mr. Spears is a 57-year-old gentleman, [facility] 8 mm mid ureteral calculus within a pelvic malrotated left kidney. He underwent left ureteral stent placement on his last visit and presents today for definitive managemen t of his ureteral stone. Procedure In Detail: The patient was consented in the preoperative holding area before being transfe rred to the operative suite where general anesthesia was induced. He was given ampicillin 2 g and ge ntamicin 2-3 mg/kg IV antimicrobial prophylaxis. Pneumo boots were provided for DVT prophylaxis. He was placed in the lithotomy position, padded and secured to the table appropriately and his genitali a were prepped with Hibiclens and draped in standard fashion. The case was begun using a 22-Surinamese r igid cystoscope to traverse the urethra into the bladder with ease. The bladder was then briefly tasha veyed and decompressed of urine. The ureteral stent was noted to emanate from the left ureteral orif ice and was grasped using an alligator grasper and delivered to the meatus. The proximal coil of the stent remained within the mid proximal ureter as observed fluoroscopically. Via the stent, a Sensor wire was passed into the putative collecting system and the stent was removed. Over the Sensor wire , a dual-lumen catheter was passed into the midportion of his pelvic, kidneys, ureter until it reache d a radiopaque density in that location. A retrograde pyelogram was then performed by injecting a 70 :30 mixture of Omnipaque and saline via the second lumen of the dual-lumen catheter. Contrast did em anate around the radiodense structure in the putative midportion of the ureter before navigating into a mildly dilated renal pelvis without caliectasis of this pelvic kidney. The wire was noted to be i n good position, coiled within the upper pole. As a result, I removed the dual-lumen catheter and ut ilized a semi-rigid ureteroscope to direct visualize via the urethra and into his left ureteral orifi ce. Then utilizing the 200 nm Thulium laser fiber with power settings of 0.6 joules and 10 hertz to start increasing to 14 hertz, I was quickly able to fragment the stone into dust around the size of t he laser fiber or about 200 nm. Most of that dust I was able to manipulate out of the ureteral orifi ce using the pressurized saline irrigation for the ureteroscopy. In the end, the stone was completel y removed and there was no significant ureteral damage. As a result, since no additional calculi of significance were present within his kidney other than an evident calyceal Jose R's plaque that was less than 2 mm in size, ureteroscopy was completed. The scope was removed, and I back-loaded the cys toscope over the safety wire. I then passed a 6-Surinamese by 20 cm double-J ureteral stent into the lef t pelvic kidney with a coil observed fluoroscopically in the renal pelvis and 1 cystoscopically forme d in the bladder. The stent was left on its tether, which was secured to the glans penis using Masti delores and Steri-Strips. In the end, the patient's bladder was decompressed as the scope was removed, p rior to the tether being secured to the glans. He was taken out of the lithotomy position, awakened from general anesthesia, transferred to a stretcher, and then transferred to the recovery room in goo d condition. Complications: None. Discharge Disposition: He may follow up in the Urology Clinic on Monday preferred, if tano diaz to have the tethered ureteral stent removed. He will be given a dose of antimicrobial therapy at the time of that visit via the of adonis. TERRANCE/MODL Voice ID: [id number] Report ID: [id number]
== END 2022-05-24 09:38 | disposition home or self-care (01) ==
LOC: OR 06:24
PROVIDERS: ATTEND Urology
PROC: 0T778DZ Dilation of Left Ureter with Intraluminal Device, Via Natural or Artificial Opening Endoscopic (ICD-10-PCS; 2022-05-24)
PROC: 0TF78ZZ Fragmentation in Left Ureter, Via Natural or Artificial Opening Endoscopic (ICD-10-PCS; principal; 2022-05-24 07:30)
DX: N20.1 Calculus of ureter (principal); Q63.2 Ectopic kidney
CPT/HCPCS: 87088; 87086; 82947 ×2; 74450; 51610; 52356; J2704; J2001; J1580; J2250; J3010; J7030; J2405; J0290